=== PATIENT | male | born 1985 | race Native Hawaiian/Other Pacific Islander ===

== ENCOUNTER 2018-04-06 11:38 | Emergency (ER) | payer SELFPAY ==
[2018-04-06 11:51] VITALS: BP 126/68
[2018-04-06] MEDS ORDERED: BOOSTRIX IM ONE (13:02)
[2018-04-06] MEDS ORDERED: MARCAINE 0.5% INFILTRATI ONE ×2 (14:11→14:13)
--- NOTE | 2018-04-06 14:23 | Emergency Department Report ---
ED Upper Extremity Inj HPI - General Chief Complaint: Extremity Injury, Upper Stated Complaint: CUT FINGER Time Seen by Provider: 04/06/18 12:37 Source: patient Mode of arrival: Ambulatory Limitations: No Limitations - History of Present Illness Initial Comments: This is a 32-year-old male who presents with swelling and pain to right palm from injury. Patient was working in the backyard moving metal and he sustained a cut to 3 days ago. Patient states he washed the wound with salt water and wrapped. He cannot recall the last time he received a tetanus vaccine. Patient states he can perform full range of motion which is painful. Denies numbness or tingling, weakness, drainage, or fever. MD Complaint: Injury to:: finger (right thumb) Onset/Timin -: days(s) Other Extremity Injury: Fingers: Right (1st digit) Other Injuries: none Handedness: right Place: home Severity scale (0 -10): 7 Improves With: none Worsens With: movement of extremity Context: laceration Associated Symptoms: denies other symptoms Treatments Prior to Arrival: bandage - Related Data Previous Rx's Medication Instructions Recorded Last Taken Type Ibuprofen [Motrin 600 MG tab] 600 mg PO Q8H PRN #12 tablet 04/06/18 Unknown Rx Sulfamethoxazole/Trimethoprim 1 each PO BID #20 tablet 04/06/18 Unknown Rx [Bactrim DS TAB] Allergies Allergy/AdvReac Type Severity Reaction Status Date / Time No Known Allergies Allergy Verified 04/06/18 14:22 ED Review of Systems ROS: Stated complaint: CUT FINGER Other details as noted in HPI Constitutional: denies: chills, fever Respiratory: denies: cough, shortness of breath, wheezing Cardiovascular: denies: chest pain, palpitations Gastrointestinal: denies: abdominal pain, nausea, diarrhea Musculoskeletal: denies: back pain, joint swelling, arthralgia Skin: lesions (abscess to right thumb). denies: rash Neurological: denies: headache, weakness, paresthesias Psychiatric: denies: anxiety, depression ED Past Medical Hx - Past Medical History Previous Medical History?: No - Social History Smoking Status: Current Every Day Smoker Substance Use Type: Alcohol - Medications Home Medications: Home Medications Medication Instructions Recorded Confirmed Last Taken Type Ibuprofen [Motrin 600 MG tab] 600 mg PO Q8H PRN #12 tablet 04/06/18 Unknown Rx Sulfamethoxazole/Trimethoprim 1 each PO BID #20 tablet 04/06/18 Unknown Rx [Bactrim DS TAB] ED Physical Exam - General Limitations: No Limitations General appearance: alert, in no apparent distress - Respiratory Respiratory exam: Present: normal lung sounds bilaterally. Absent: respiratory distress - Cardiovascular Cardiovascular Exam: Present: regular rate, normal rhythm. Absent: systolic murmur, diastolic murmur, rubs, gallop - GI/Abdominal GI/Abdominal exam: Present: soft, normal bowel sounds - Neurological Exam Neurological exam: Present: alert, oriented X3 - Psychiatric Psychiatric exam: Present: normal affect, normal mood - Skin Skin exam: Present: warm, dry, intact, normal color, other (0.5 cm erythematous fluctuant nodule to first right IP joint, tenderness, no active discharge). Absent: rash ED Course Vital Signs 04/06/18 11:47 Temperature 99 F Pulse Rate 60 Respiratory 16 Rate Blood Pressure 126/68 O2 Sat by Pulse 97 Oximetry ED Medical Decision Making - Medical Decision Making Patient is stable and examined by me screening by Dr. Malik. Physical assessment of 0.5 cm fluctuance nodule to right first IP joint. No acute signs of distress noted. Given tetanus vaccine while in ER. I&D refer to note. Discussed plan to start bactrim DS and ibuprofen with patient. Educated patient and spouse on follow up plan to have wound reassessed in 2-3 days. Patient agrees to ED plan of care. Discharged home and follow up with PCP in 2-3 days. Critical care attestation.: If time is entered above; I have spent that time in minutes in the direct care of this critically ill patient, excluding procedure time. ED Disposition Clinical Impression: Abscess of finger of right hand Disposition: DC-01 TO HOME OR SELFCARE Is pt being admited?: No Does the pt Need Aspirin: No Condition: Stable Instructions: Abscess Incision and Drainage (ED), Abscess (ED) Additional Instructions: Keep packing in place for 2-3 days. Complete full round of bactrim DS antibiotic as prescribed. Avoid drinking alcohol while taking antibiotics for up to 24 hours after completion. Follow up with PCP or ER in 2-3 days. Return to ER if foul smelling discharge, swelling, or severe pain to wound. Prescriptions: Ibuprofen [Motrin 600 MG tab] 600 mg PO Q8H PRN #12 tablet PRN Reason: Pain Sulfamethoxazole/Trimethoprim [Bactrim DS TAB] 1 each PO BID #20 tablet Referrals: [facility] [Outside] - 3-5 Days [facility] [Outside] - 3-5 Days [facility] [Outside] - 3-5 Days Time of Disposition: 14:32 Print Language: LITHU[place] I & D Note - I & D Note I & D Note: The area was prepared and draped in the usual, sterile manner. The site was anesthetized with 0.5% Marcaine without epinephrine. A linear incision along the local skin lines was made and the serous material expressed. The abcess was explored thoroughly and sequestered pockets were opened. Bleeding was minimal. Followup: The patient tolerated the procedure well without complications. Standard post-procedure care was explained and return precautions are given.
== END 2018-04-06 14:50 | disposition home or self-care (01) ==
LOC: ED 11:38
DX: L02.511 Cutaneous abscess of right hand (principal); F17.200 Nicotine dependence, unspecified, uncomplicated
CPT/HCPCS: 90471; 90715; 99283